=== PATIENT | male | born 1990 | race Caucasian/White ===

== ENCOUNTER 2017-07-21 19:33 | Emergency (ER) | payer SELFPAY ==
[~2017-07-21] VITALS: Ht 172.7 cm; Wt 110.0 kg
[2017-07-21] MEDS ORDERED: PREDNISONE20 MG PO (21:20)
[2017-07-21] MEDS ORDERED: TESSALON PERLE100 MG PO (21:20)
[2017-07-21] MEDS ORDERED: NORCO 7.5/321 TABLET PO (21:20)
[2017-07-21] MEDS ORDERED: MOTRIN800 MG PO (21:20)
[2017-07-21] MEDS ORDERED: LEVAQUIN500 MG PO (21:20)
[2017-07-21 22:01] VITALS: BP 132/78
== END 2017-07-21 22:04 | disposition home or self-care (01) ==
LOC: EME 19:33
DX: J18.0 Bronchopneumonia, unspecified organism (principal); M54.42 Lumbago with sciatica, left side; Z88.0 Allergy status to penicillin
CPT/HCPCS: 99281; 99284; J3010; J7512